=== PATIENT | female | born 1980 | race African-American/Black ===

== ENCOUNTER 2021-09-26 18:39 | Observation (INO) | payer MEDICAID, OTHER ==
[~2021-09-26] VITALS: Ht 170.2 cm; Wt 82.0 kg
[2021-09-26 21:15] LABS: BASOPHILS % 0.2 % (0.0-2.0); EOSINOPHILS % 0.5 % (0.0-5.0); HEMATOCRIT. 37.9 % (36.0-48.0); HEMOGLOBIN. 12.8 g/dL (12.0-16.0); LYMPHOCYTES % 15.8 % (20.0-50.0); MEAN CORPUSCULAR HEMOGLOBIN 32.6 pg (28.0-32.0); MEAN CORPUSCULAR VOLUME 96.2 fL (81.0-99.0); MEAN PLATELET VOLUME 7.7 fl (7.4-10.4); NEUTROPHILS % 75.5 % (40.0-76.0); PLATELET 256 x1000/uL (130-400); RED BLOOD CELL COUNT 3.94 mill/uL (4.2-5.4); RED CELL DISTRIBUTION WIDTH 13.7 % (11.6-14.6)
[2021-09-26 21:26] LABS: CHLORIDE 110 mEq/L (98-107)
[2021-09-26 21:49] LABS: B-HCG QUANTITATIVE 10877 mIU/mL (<3)
[2021-09-26 22:10] VITALS: BP 154/89
[2021-09-26 22:48] LABS: CLARITY URINE CLOUDY (CLEAR); COLOR URINE YELLOW (YELLOW); KETONES URINE NEGATIVE (NEGATIVE); LEUKOCYTE ESTERASE URINE 1+ (NEGATIVE); NITRITE URINE NEGATIVE (NEGATIVE); OCCULT BLOOD URINE NEGATIVE (NEGATIVE); PROTEIN URINE NEGATIVE (NEGATIVE); SPECIFIC GRAVITY URINE 1.021 (1.005-1.030); UROBILINOGEN URINE 0.2 E.U./dL (0.2-1.0)
[2021-09-27] MEDS ORDERED: LABETALOL HCL 200MG TABLET PO SCH (03:30)
[2021-09-27 04:43] LABS: INR 0.9; PARTIAL THROMBOPLASTIN TIME 27.9 sec (23.4-31.0); PROTHROMBIN TIME 9.4 sec (9.6-11.0)
== END 2021-09-27 06:00 | disposition home or self-care (01) ==
LOC: ER 18:58 → 8 EST LDRP 23:35
PROVIDERS: ADMIT Specialist; ATTEND Specialist
DX: O26.893 Other specified pregnancy related conditions, third trimester (principal); R42 Dizziness and giddiness; O16.3 Unspecified maternal hypertension, third trimester; O09.523 Supervision of elderly multigravida, third trimester; Z3A.28 28 weeks gestation of pregnancy
CPT/HCPCS: 36415; 59025; 76805; 76818; 80053; 81003; 83690; 84484; 84550; 84702; 85025; 85384; 85610; 85730; 93005; 99284; G0378; 99281

== ENCOUNTER 2021-11-01 13:00 | Inpatient (IN) | payer MEDICAID, OTHER ==
[2021-11-01] VITALS (83 sets, daily range): BP systolic 43–150; BP diastolic 23–129
[~2021-11-01] VITALS: Ht 170.2 cm; Wt 100.1 kg
[2021-11-01] MEDS ORDERED: LACTATED RINGERS 1,000 ML IV SCH (13:15)
[2021-11-01] MEDS ORDERED: ONDANSETRON HCL 4MG/2ML INJ IV PRN ×2 (13:15→14:45)
[2021-11-01] MEDS ORDERED: PROPOFOL 200MG/20ML VIAL IV ONE (13:42)
[2021-11-01] MEDS ORDERED: SUCCINYLCHOLINE CHLORIDE 200MG/10ML IV ONE (13:42)
[2021-11-01 13:43] LABS: BASOPHILS % 0.1 % (0.0-2.0); EOSINOPHILS % 0.3 % (0.0-5.0); HEMATOCRIT. 29.5 % (36.0-48.0); HEMOGLOBIN. 10.1 g/dL (12.0-16.0); LYMPHOCYTES % 10.8 % (20.0-50.0); MEAN CORPUSCULAR HEMOGLOBIN 33.4 pg (28.0-32.0); MEAN CORPUSCULAR VOLUME 97.2 fL (81.0-99.0); NEUTROPHILS % 78.8 % (40.0-76.0); PLATELET 90 x1000/uL (130-400); RED BLOOD CELL COUNT 3.04 mill/uL (4.2-5.4); RED CELL DISTRIBUTION WIDTH 13.5 % (11.6-14.6)
[2021-11-01] MEDS ORDERED: MAGNESIUM 4 G PREMIX 100 ML IV NR (13:45)
[2021-11-01] MEDS ORDERED: IBUPROFEN 400MG TABLET PO PRN (13:45)
[2021-11-01] MEDS ORDERED: HEMORRHOIDAL SUPP PR PRN (13:45)
[2021-11-01] MEDS: DEXT 5%/LACTATED RINGERS 1,000 ML IV SCH ×2 (13:45→21:51)
[2021-11-01] MEDS ORDERED: IBUPROFEN 800MG TABLET PO PRN (13:45)
[2021-11-01] MEDS ORDERED: RHO(D) IMMUNE GLOBULIN 300 MCG/SYR IM PRN (13:45)
[2021-11-01] MEDS ORDERED: DIPHENHYDRAMINE 25MG CAPSULE PO PRN (13:45)
[2021-11-01] MEDS ORDERED: MAGNESIUM 20 G PREMIX (L & D) 500 ML IV SCH (13:45)
[2021-11-01] MEDS ORDERED: BISACODYL 10MG SUPP PR PRN (13:45)
[2021-11-01] MEDS ORDERED: CEFAZOLIN SODIUM 1000MG/VIAL ONE (13:47)
[2021-11-01] MEDS ORDERED: SODIUM CHLORIDE 0.9% 10ML VIAL ONE (13:47)
[2021-11-01] MEDS ORDERED: OXYTOCIN 10 UNITS/ML 1ML ONE (13:47)
[2021-11-01] MEDS ORDERED: EPHEDRINE SULFATE 50MG/ML VIAL ONE (13:47)
[2021-11-01 13:49] LABS: CHLORIDE 112 mEq/L (98-107)
[2021-11-01 14:02] LABS: INR 1.2; PARTIAL THROMBOPLASTIN TIME 31.9 sec (23.4-31.0); PROTHROMBIN TIME 13.1 sec (9.6-11.0)
[2021-11-01] MEDS ORDERED: ONDANSETRON HCL 4MG/2ML INJ ONE (14:13)
[2021-11-01] MEDS ORDERED: FENTANYL CITRATE/PF 50MCG/ML 2ML VIAL ONE (14:16)
[2021-11-01] MEDS ORDERED: LABETALOL HCL 5MG/ML VIAL 20ML IV ONE (14:17)
[2021-11-01 14:37] LABS: D-DIMER > 35.20 mg/L FEU (<0.50)
[2021-11-01 14:43] LABS: FIBRINOGEN 93 mg/dL (200-400)
[2021-11-01] MEDS: HYDROMORPHONE HCL/PF 2MG/ML CPJ IV PRN ×3 (15:01→23:49)
[2021-11-01 15:23] LABS: CLARITY URINE TURBID (CLEAR); COLOR URINE DARK YELLOW (YELLOW); KETONES URINE TRACE (NEGATIVE); LEUKOCYTE ESTERASE URINE 1+ (NEGATIVE); NITRITE URINE NEGATIVE (NEGATIVE); OCCULT BLOOD URINE 3+ (NEGATIVE); PH URINE 5.5 (4.5-8.0); PROTEIN URINE 4+ (NEGATIVE); SPECIFIC GRAVITY URINE 1.033 (1.005-1.030); UROBILINOGEN URINE 0.2 E.U./dL (0.2-1.0)
[2021-11-01 15:39] LABS: *AMPHETAMINES SCREEN URINE NEGATIVE (NEGATIVE); *BARBITURATES SCREEN URINE NEGATIVE (NEGATIVE); *BENZODIAZEPINES SCREEN URINE NEGATIVE (NEGATIVE); *COCAINE SCREEN URINE NEGATIVE (NEGATIVE); METHADONE URINE SCREEN NEGATIVE (NEGATIVE); OPIATES URINE SCREEN NEGATIVE (NEGATIVE)
[2021-11-01 15:40] LABS: CANNABINOID URINE SCREEN NEGATIVE (NEGATIVE); PHENCYCLIDINE URINE SCREEN NEGATIVE (NEGATIVE)
[2021-11-01] MEDS ORDERED: LABETALOL HCL 5MG/ML VIAL 20ML IV PRN ×2 (16:00)
[2021-11-01] MEDS ORDERED: NALOXONE HCL 0.4MG/ML VIAL IV PRN (16:00)
[2021-11-01] MEDS ORDERED: HYDRALAZINE 20MG/ML VIAL IV PRN ×2 (16:00)
[2021-11-01] MEDS: MAGNESIUM/ALUMINUM HYDROXIDE/SIMETHICONE 30ML UDC PO SCH ×3 (17:00→21:49)
[2021-11-01] MEDS: SIMETHICONE 80MG TABLET CHEW PO SCH ×3 (17:00→21:49)
[2021-11-01] MEDS: DEXT 5%/LR + PITOCIN 20UNITS/L 1,000 ML IV SCH ×2 (17:27→21:52)
[2021-11-01 18:29] LABS: EOSINOPHILS % 0.1 % (0.0-5.0); LYMPHOCYTES % 11.9 % (20.0-50.0); MEAN CORPUSCULAR HEMOGLOBIN 32.6 pg (28.0-32.0); MEAN CORPUSCULAR VOLUME 98.4 fL (81.0-99.0); MEAN PLATELET VOLUME 7.5 fl (7.4-10.4); MONOCYTES % 7.8 % (2.0-8.0); NEUTROPHILS % 80.2 % (40.0-76.0); PLATELET 78 x1000/uL (130-400); RED BLOOD CELL COUNT 1.98 mill/uL (4.2-5.4); RED CELL DISTRIBUTION WIDTH 13.2 % (11.6-14.6)
[2021-11-01 18:31] LABS: HEMATOCRIT. 19.5 % (36.0-48.0); HEMOGLOBIN. 6.5 g/dL (12.0-16.0)
[2021-11-01 18:36] LABS: CHLORIDE 106 mEq/L (98-107)
[2021-11-01 20:15] LABS: INR 1.3; PARTIAL THROMBOPLASTIN TIME 30.2 sec (23.4-31.0); PROTHROMBIN TIME 13.3 sec (9.6-11.0)
[2021-11-01] MEDS ORDERED: FUROSEMIDE 20MG/2ML VIAL IVP NR (20:30)
[2021-11-01 20:35] LABS: D-DIMER > 35.20 mg/L FEU (<0.50); FIBRINOGEN 93 mg/dL (200-400)
[2021-11-01] MEDS: DOCUSATE SODIUM 100MG CAPSULE PO SCH (21:00)
[2021-11-02] VITALS (187 sets, daily range): BP systolic 63–181; BP diastolic 15–129
[2021-11-02 01:14] LABS: EOSINOPHILS % 0.1 % (0.0-5.0); HEMATOCRIT. 22.8 % (36.0-48.0); HEMOGLOBIN. 7.4 g/dL (12.0-16.0); LYMPHOCYTES % 13.1 % (20.0-50.0); MEAN CORPUSCULAR HEMOGLOBIN 31.4 pg (28.0-32.0); MEAN CORPUSCULAR VOLUME 97.2 fL (81.0-99.0); MEAN PLATELET VOLUME 8.4 fl (7.4-10.4); MONOCYTES % 10.2 % (2.0-8.0); NEUTROPHILS % 76.6 % (40.0-76.0); PLATELET 73 x1000/uL (130-400); RED BLOOD CELL COUNT 2.34 mill/uL (4.2-5.4); RED CELL DISTRIBUTION WIDTH 16.5 % (11.6-14.6)
[2021-11-02 03:20] LABS: CLARITY URINE CLOUDY (CLEAR); COLOR URINE DARK YELLOW (YELLOW); KETONES URINE TRACE (NEGATIVE); LEUKOCYTE ESTERASE URINE TRACE (NEGATIVE); NITRITE URINE NEGATIVE (NEGATIVE); OCCULT BLOOD URINE 2+ (NEGATIVE); PROTEIN URINE 2+ (NEGATIVE); SPECIFIC GRAVITY URINE 1.021 (1.005-1.030); UROBILINOGEN URINE 0.2 E.U./dL (0.2-1.0)
[2021-11-02] MEDS: DEXT 5%/LACTATED RINGERS 1,000 ML IV SCH (06:27)
[2021-11-02] MEDS: DEXT 5%/LR + PITOCIN 20UNITS/L 1,000 ML IV SCH (06:33)
[2021-11-02] MEDS: HYDROMORPHONE HCL/PF 2MG/ML CPJ IV PRN (07:50)
[2021-11-02] MEDS: PRENATAL VIT/FE FUMARATE/FA TABLET PO SCH (08:41)
[2021-11-02] MEDS: MAGNESIUM/ALUMINUM HYDROXIDE/SIMETHICONE 30ML UDC PO SCH ×4 (08:42→21:00)
[2021-11-02] MEDS: CEFAZOLIN 1000MG PREMIX 50 ML IV SCH ×2 (08:42→18:41)
[2021-11-02] MEDS: FERROUS SULFATE 325MG TABLET PO SCH ×3 (08:42→18:42)
[2021-11-02] MEDS: SIMETHICONE 80MG TABLET CHEW PO SCH ×4 (08:42→21:00)
[2021-11-02 09:57] LABS: BASOPHILS % 0.1 % (0.0-2.0); LYMPHOCYTES % 13.5 % (20.0-50.0); MEAN CORPUSCULAR HEMOGLOBIN 30.7 pg (28.0-32.0); MEAN CORPUSCULAR VOLUME 93.2 fL (81.0-99.0); MONOCYTES % 9.7 % (2.0-8.0); NEUTROPHILS % 76.7 % (40.0-76.0); PLATELET 90 x1000/uL (130-400); RED BLOOD CELL COUNT 1.69 mill/uL (4.2-5.4); RED CELL DISTRIBUTION WIDTH 16.4 % (11.6-14.6)
[2021-11-02 10:04] LABS: HEMATOCRIT. 15.7 % (36.0-48.0); HEMOGLOBIN. 5.2 g/dL (12.0-16.0)
[2021-11-02 10:09] LABS: CHLORIDE 107 mEq/L (98-107)
[2021-11-02] MEDS: ONDANSETRON HCL 4MG/2ML INJ IV PRN ×2 (10:26→18:41)
[2021-11-02] MEDS ORDERED: DEXTROSE 50% WATER 50ML SYRINGE IV PRN (13:15)
[2021-11-02] MEDS: PANTOPRAZOLE SODIUM 40 MG/VIAL IV SCH (14:20)
[2021-11-02] MEDS: SODIUM CHLORIDE 0.9% 1,000 ML IV SCH (14:20)
[2021-11-02 15:29] LABS: TOTAL IRON BINDING CAPACITY 226 ug/dL (250-450)
[2021-11-02] MEDS: INSULIN LISPRO 100 UNITS/ML SUBCUT SCH ×2 (18:20→21:00)
[2021-11-02] MEDS: BLOOD SUGAR DIAGNOSTIC STRIP TEST SCH ×2 (18:29→21:04)
[2021-11-02 19:54] LABS: BASOPHILS % 0.1 % (0.0-2.0); EOSINOPHILS % 0.1 % (0.0-5.0); HEMATOCRIT. 23.2 % (36.0-48.0); HEMOGLOBIN. 7.9 g/dL (12.0-16.0); LYMPHOCYTES % 7.8 % (20.0-50.0); MEAN CORPUSCULAR VOLUME 88.1 fL (81.0-99.0); MEAN PLATELET VOLUME 8.6 fl (7.4-10.4); MONOCYTES % 9.2 % (2.0-8.0); NEUTROPHILS % 82.8 % (40.0-76.0); PLATELET 82 x1000/uL (130-400); RED BLOOD CELL COUNT 2.64 mill/uL (4.2-5.4); RED CELL DISTRIBUTION WIDTH 15.9 % (11.6-14.6)
[2021-11-02 20:03] LABS: CHLORIDE 107 mEq/L (98-107)
[2021-11-02] MEDS ORDERED: METOCLOPRAMIDE HCL 10MG/2ML VIAL IV SCH (20:15)
[2021-11-02] MEDS: METOCLOPRAMIDE HCL 10MG/2ML VIAL IV PRN (20:17)
[2021-11-02 20:36] LABS: HEPATITIS B SURFACE ANTIGEN NEGATIVE
[2021-11-02] MEDS: DOCUSATE SODIUM 100MG CAPSULE PO SCH (21:00)
[2021-11-03] VITALS (58 sets, daily range): BP systolic 99–177; BP diastolic 43–95
[2021-11-03] MEDS: ONDANSETRON HCL 4MG/2ML INJ IV PRN (00:38)
[2021-11-03] MEDS: OXYCODONE HCL/ACETAMINOPHEN 5/325MG TABLET PO PRN ×3 (00:38→21:14)
[2021-11-03] MEDS: SODIUM CHLORIDE 0.9% 1,000 ML IV SCH ×3 (00:46→14:54)
[2021-11-03 00:54] LABS: BASOPHILS % 0.1 % (0.0-2.0); HEMATOCRIT. 22.5 % (36.0-48.0); HEMOGLOBIN. 7.7 g/dL (12.0-16.0); LYMPHOCYTES % 7.5 % (20.0-50.0); MEAN CORPUSCULAR HEMOGLOBIN 30.2 pg (28.0-32.0); MEAN CORPUSCULAR VOLUME 88.3 fL (81.0-99.0); MEAN PLATELET VOLUME 8.5 fl (7.4-10.4); NEUTROPHILS % 84.4 % (40.0-76.0); PLATELET 90 x1000/uL (130-400); RED BLOOD CELL COUNT 2.55 mill/uL (4.2-5.4); RED CELL DISTRIBUTION WIDTH 16.3 % (11.6-14.6)
[2021-11-03] MEDS: CEFAZOLIN 1000MG PREMIX 50 ML IV SCH ×2 (03:17→10:18)
[2021-11-03 05:51] LABS: MEAN CORPUSCULAR HEMOGLOBIN 30.3 pg (28.0-32.0); MEAN CORPUSCULAR VOLUME 88.5 fL (81.0-99.0); MEAN PLATELET VOLUME 8.6 fl (7.4-10.4); PLATELET 90 x1000/uL (130-400); RED BLOOD CELL COUNT 2.28 mill/uL (4.2-5.4); RED CELL DISTRIBUTION WIDTH 16.5 % (11.6-14.6)
[2021-11-03 05:57] LABS: HEMATOCRIT. 20.2 % (36.0-48.0); HEMOGLOBIN. 6.9 g/dL (12.0-16.0)
[2021-11-03 05:58] LABS: CHLORIDE 109 mEq/L (98-107)
[2021-11-03 06:06] LABS: PHOSPHORUS 5.3 mg/dL (2.5-4.9)
[2021-11-03] MEDS: METOCLOPRAMIDE HCL 10MG/2ML VIAL IV PRN (06:46)
[2021-11-03 07:47] LABS: PLATELET ESTIMATE SLIGHTLY DECREASED
[2021-11-03] MEDS: BLOOD SUGAR DIAGNOSTIC STRIP TEST SCH ×4 (08:27→21:00)
[2021-11-03] MEDS: PRENATAL VIT/FE FUMARATE/FA TABLET PO SCH (09:02)
[2021-11-03] MEDS: MAGNESIUM/ALUMINUM HYDROXIDE/SIMETHICONE 30ML UDC PO SCH ×4 (09:02→21:18)
[2021-11-03] MEDS: PANTOPRAZOLE SODIUM 40 MG/VIAL IV SCH (09:02)
[2021-11-03] MEDS: SIMETHICONE 80MG TABLET CHEW PO SCH ×4 (09:02→21:12)
[2021-11-03] MEDS: FERROUS SULFATE 325MG TABLET PO SCH ×3 (09:02→18:04)
[2021-11-03] MEDS: INSULIN LISPRO 100 UNITS/ML SUBCUT SCH ×4 (09:03→21:12)
[2021-11-03] MEDS: LABETALOL HCL 100MG TABLET PO SCH ×3 (11:23→18:04)
[2021-11-03 12:28] LABS: HEMATOCRIT. 24.8 % (36.0-48.0); HEMOGLOBIN. 8.4 g/dL (12.0-16.0); MEAN CORPUSCULAR HEMOGLOBIN 29.8 pg (28.0-32.0); MEAN CORPUSCULAR VOLUME 87.7 fL (81.0-99.0); MEAN PLATELET VOLUME 8.4 fl (7.4-10.4); PLATELET 97 x1000/uL (130-400); RED BLOOD CELL COUNT 2.83 mill/uL (4.2-5.4); RED CELL DISTRIBUTION WIDTH 15.6 % (11.6-14.6)
[2021-11-03 13:12] LABS: PLATELET ESTIMATE DECREASED
[2021-11-03] MEDS ORDERED: CEFTRIAXONE 2 G PREMIX 50 ML IV SCH (17:00)
[2021-11-03] MEDS: CEFTRIAXONE 2 G in DEXTROSE 5% WATER 50 ML IV SCH (18:04)
[2021-11-03] MEDS ORDERED: METOCLOPRAMIDE HCL 10MG/2ML VIAL IV PRN (18:19)
[2021-11-03] MEDS ORDERED: VANCOMYCIN 500MG PREMIX 100 ML IV SCH (18:30)
[2021-11-03] MEDS: DOCUSATE SODIUM 100MG CAPSULE PO SCH (21:12)
[2021-11-04] VITALS (51 sets, daily range): BP systolic 113–162; BP diastolic 25–110
[2021-11-04] MEDS: SODIUM CHLORIDE 0.9% 1,000 ML IV SCH ×2 (03:00→23:08)
[2021-11-04] MEDS: OXYCODONE HCL/ACETAMINOPHEN 5/325MG TABLET PO PRN ×4 (03:06→23:08)
[2021-11-04 05:46] LABS: HEMOGLOBIN. 7.1 g/dL (12.0-16.0); MEAN CORPUSCULAR HEMOGLOBIN 30.3 pg (28.0-32.0); MEAN CORPUSCULAR VOLUME 89.2 fL (81.0-99.0); MEAN PLATELET VOLUME 7.8 fl (7.4-10.4); PLATELET 89 x1000/uL (130-400); RED BLOOD CELL COUNT 2.34 mill/uL (4.2-5.4); RED CELL DISTRIBUTION WIDTH 15.9 % (11.6-14.6)
[2021-11-04 06:04] LABS: PHOSPHORUS 3.7 mg/dL (2.5-4.9)
[2021-11-04 07:04] LABS: HEMATOCRIT. 20.9 % (36.0-48.0)
[2021-11-04] MEDS: BLOOD SUGAR DIAGNOSTIC STRIP TEST SCH ×4 (07:50→21:47)
[2021-11-04 08:04] LABS: NUCLEATED RED BLOOD CELLS 1 /100 WBC
[2021-11-04 08:05] LABS: PLATELET ESTIMATE DECREASED
[2021-11-04] MEDS: PRENATAL VIT/FE FUMARATE/FA TABLET PO SCH (08:26)
[2021-11-04] MEDS: LABETALOL HCL 100MG TABLET PO SCH ×3 (08:26→17:46)
[2021-11-04] MEDS: PANTOPRAZOLE SODIUM 40 MG/VIAL IV SCH (08:26)
[2021-11-04] MEDS: FERROUS SULFATE 325MG TABLET PO SCH ×3 (08:26→17:47)
[2021-11-04] MEDS: SIMETHICONE 80MG TABLET CHEW PO SCH ×4 (08:26→21:47)
[2021-11-04] MEDS: MAGNESIUM/ALUMINUM HYDROXIDE/SIMETHICONE 30ML UDC PO SCH ×4 (08:27→21:47)
[2021-11-04] MEDS: INSULIN LISPRO 100 UNITS/ML SUBCUT SCH ×4 (08:29→21:00)
[2021-11-04] MEDS ORDERED: VANCOMYCIN 1,000 MG in DEXT 5% WATER 250 ML IV NR (12:00)
[2021-11-04 13:07] LABS: *CREATININE RANDOM URINE 154.1 mg/dL (Not Estab.); MICROALBUMIN RANDOM URINE 1744.7 ug/mL (Not Estab.)
[2021-11-04] MEDS: CEFTRIAXONE 2 G in DEXTROSE 5% WATER 50 ML IV SCH (18:29)
[2021-11-04 20:23] LABS: HEMATOCRIT 23.9 % (36.0-48.0); HEMOGLOBIN 7.8 g/dL (12.0-16.0)
[2021-11-04] MEDS: DOCUSATE SODIUM 100MG CAPSULE PO SCH (21:47)
[2021-11-05] VITALS: BP 139/79
[2021-11-05 04:00] VITALS: BP 144/82
[2021-11-05] MEDS: OXYCODONE HCL/ACETAMINOPHEN 5/325MG TABLET PO PRN ×3 (05:41→21:38)
[2021-11-05 06:34] LABS: BASOPHILS % 0.1 % (0.0-2.0); EOSINOPHILS % 0.3 % (0.0-5.0); HEMATOCRIT. 23.5 % (36.0-48.0); LYMPHOCYTES % 7.3 % (20.0-50.0); MEAN CORPUSCULAR HEMOGLOBIN 30.5 pg (28.0-32.0); MEAN CORPUSCULAR VOLUME 89.4 fL (81.0-99.0); MEAN PLATELET VOLUME 7.6 fl (7.4-10.4); MONOCYTES % 7.1 % (2.0-8.0); NEUTROPHILS % 85.2 % (40.0-76.0); PLATELET 107 x1000/uL (130-400); RED BLOOD CELL COUNT 2.62 mill/uL (4.2-5.4); RED CELL DISTRIBUTION WIDTH 15.5 % (11.6-14.6)
[2021-11-05 07:21] LABS: CHLORIDE 115 mEq/L (98-107)
[2021-11-05 07:28] LABS: PHOSPHORUS 2.7 mg/dL (2.5-4.9)
[2021-11-05] MEDS: BLOOD SUGAR DIAGNOSTIC STRIP TEST SCH ×4 (07:40→21:38)
[2021-11-05] MEDS: INSULIN LISPRO 100 UNITS/ML SUBCUT SCH ×4 (07:50→21:00)
[2021-11-05 08:00] VITALS: BP 152/67
[2021-11-05] MEDS: PANTOPRAZOLE SODIUM 40 MG/VIAL IV SCH (09:35)
[2021-11-05] MEDS: MAGNESIUM/ALUMINUM HYDROXIDE/SIMETHICONE 30ML UDC PO SCH ×4 (09:35→21:38)
[2021-11-05] MEDS: PRENATAL VIT/FE FUMARATE/FA TABLET PO SCH (09:36)
[2021-11-05] MEDS: FERROUS SULFATE 325MG TABLET PO SCH ×3 (09:36→19:05)
[2021-11-05] MEDS: LABETALOL HCL 100MG TABLET PO SCH ×3 (09:36→21:40)
[2021-11-05] MEDS: SIMETHICONE 80MG TABLET CHEW PO SCH ×4 (09:36→21:32)
[2021-11-05 12:00] VITALS: BP 163/63
[2021-11-05] MEDS ORDERED: VANCOMYCIN 1,500 MG in DEXT 5% WATER 250 ML IV NR (13:00)
[2021-11-05 16:00] VITALS: BP 160/74
[2021-11-05] MEDS: CEFTRIAXONE 2 G in DEXTROSE 5% WATER 50 ML IV SCH (19:23)
[2021-11-05 20:30] VITALS: BP_SYST 134; BP_SYST 174; BP_DIAS 71; BP_DIAS 78
[2021-11-05] MEDS: DOCUSATE SODIUM 100MG CAPSULE PO SCH (21:32)
[2021-11-05] MEDS: SODIUM CHLORIDE 0.9% 1,000 ML IV SCH (21:39)
[2021-11-06] VITALS: BP 113/72
[2021-11-06 04:00] VITALS: BP 129/69
[2021-11-06 06:26] LABS: BASOPHILS % 0.1 % (0.0-2.0); EOSINOPHILS % 0.6 % (0.0-5.0); HEMOGLOBIN. 8.6 g/dL (12.0-16.0); MEAN CORPUSCULAR HEMOGLOBIN 31.1 pg (28.0-32.0); MEAN PLATELET VOLUME 7.3 fl (7.4-10.4); NEUTROPHILS % 76.3 % (40.0-76.0); PLATELET 144 x1000/uL (130-400); RED BLOOD CELL COUNT 2.75 mill/uL (4.2-5.4); RED CELL DISTRIBUTION WIDTH 15.6 % (11.6-14.6)
[2021-11-06] MEDS: LABETALOL HCL 100MG TABLET PO SCH ×3 (06:29→21:45)
[2021-11-06 06:38] LABS: CHLORIDE 114 mEq/L (98-107)
[2021-11-06 06:48] LABS: PHOSPHORUS 2.9 mg/dL (2.5-4.9)
[2021-11-06] MEDS: BLOOD SUGAR DIAGNOSTIC STRIP TEST SCH ×4 (07:10→21:40)
[2021-11-06] MEDS: INSULIN LISPRO 100 UNITS/ML SUBCUT SCH ×4 (07:50→21:40)
[2021-11-06 08:00] VITALS: BP 150/81
[2021-11-06] MEDS: PANTOPRAZOLE SODIUM 40 MG/VIAL IV SCH (08:43)
[2021-11-06] MEDS: FERROUS SULFATE 325MG TABLET PO SCH ×3 (08:44→17:32)
[2021-11-06] MEDS: OXYCODONE HCL/ACETAMINOPHEN 5/325MG TABLET PO PRN ×2 (08:44→21:45)
[2021-11-06] MEDS: PRENATAL VIT/FE FUMARATE/FA TABLET PO SCH (08:44)
[2021-11-06] MEDS: SIMETHICONE 80MG TABLET CHEW PO SCH ×4 (08:44→21:44)
[2021-11-06] MEDS: MAGNESIUM/ALUMINUM HYDROXIDE/SIMETHICONE 30ML UDC PO SCH ×5 (08:46→21:58)
[2021-11-06] MEDS: SODIUM CHLORIDE 0.9% 1,000 ML IV SCH (08:47)
[2021-11-06 12:00] VITALS: BP 172/88
[2021-11-06] MEDS ORDERED: VANCOMYCIN 1250MG in DEXTROSE 5% WATER 250ML IV NR (15:00)
[2021-11-06 16:00] VITALS: BP 172/89
[2021-11-06] MEDS: NIFEDIPINE XL 30MG TAB PO SCH (17:31)
[2021-11-06 20:00] VITALS: BP 161/86
[2021-11-06] MEDS: CEFTRIAXONE 2 G in DEXTROSE 5% WATER 50 ML IV SCH (20:10)
[2021-11-06] MEDS: DOCUSATE SODIUM 100MG CAPSULE PO SCH (21:45)
[2021-11-07] VITALS: BP 155/80
[2021-11-07 03:41] VITALS: BP 139/84
[2021-11-07] MEDS: OXYCODONE HCL/ACETAMINOPHEN 5/325MG TABLET PO PRN ×3 (03:46→21:49)
[2021-11-07] MEDS: INSULIN LISPRO 100 UNITS/ML SUBCUT SCH ×4 (06:49→21:00)
[2021-11-07] MEDS: BLOOD SUGAR DIAGNOSTIC STRIP TEST SCH ×4 (06:49→21:48)
[2021-11-07] MEDS: LABETALOL HCL 100MG TABLET PO SCH ×3 (06:53→21:48)
[2021-11-07] MEDS: FERROUS SULFATE 325MG TABLET PO SCH ×3 (06:56→16:58)
[2021-11-07 07:47] LABS: PHOSPHORUS 2.7 mg/dL (2.5-4.9)
[2021-11-07 08:30] VITALS: BP 148/86
[2021-11-07] MEDS: PANTOPRAZOLE SODIUM 40 MG/VIAL IV SCH (09:35)
[2021-11-07] MEDS: PRENATAL VIT/FE FUMARATE/FA TABLET PO SCH (09:35)
[2021-11-07] MEDS: NIFEDIPINE XL 30MG TAB PO SCH (09:36)
[2021-11-07] MEDS: SIMETHICONE 80MG TABLET CHEW PO SCH ×4 (09:43→21:49)
[2021-11-07 10:15] LABS: BASOPHILS % 0.1 % (0.0-2.0); HEMATOCRIT. 32.1 % (36.0-48.0); LYMPHOCYTES % 8.4 % (20.0-50.0); MEAN CORPUSCULAR HEMOGLOBIN 29.9 pg (28.0-32.0); MEAN CORPUSCULAR VOLUME 90.3 fL (81.0-99.0); MEAN PLATELET VOLUME 6.8 fl (7.4-10.4); MONOCYTES % 10.8 % (2.0-8.0); NEUTROPHILS % 79.7 % (40.0-76.0); PLATELET 214 x1000/uL (130-400); RED BLOOD CELL COUNT 3.56 mill/uL (4.2-5.4); RED CELL DISTRIBUTION WIDTH 15.8 % (11.6-14.6)
[2021-11-07 10:19] LABS: HEMOGLOBIN. 10.7 g/dL (12.0-16.0)
[2021-11-07 12:26] VITALS: BP 109/35
[2021-11-07] MEDS: MAGNESIUM/ALUMINUM HYDROXIDE/SIMETHICONE 30ML UDC PO SCH ×3 (12:44→21:49)
[2021-11-07 16:03] VITALS: BP 157/84
[2021-11-07 20:00] VITALS: BP 97/62
[2021-11-07] MEDS: DOCUSATE SODIUM 100MG CAPSULE PO SCH (21:49)
[2021-11-07] MEDS ORDERED: METOCLOPRAMIDE HCL 10MG/2ML VIAL IV PRN (22:12)
[2021-11-08] VITALS: BP 116/71
[2021-11-08] MEDS: OXYCODONE HCL/ACETAMINOPHEN 5/325MG TABLET PO PRN ×2 (03:53→21:29)
[2021-11-08 04:00] VITALS: BP 162/97
[2021-11-08] MEDS: LABETALOL HCL 100MG TABLET PO SCH ×3 (06:23→17:40)
[2021-11-08] MEDS: BLOOD SUGAR DIAGNOSTIC STRIP TEST SCH ×4 (06:23→21:00)
[2021-11-08 07:20] LABS: BASOPHILS % 0.3 % (0.0-2.0); EOSINOPHILS % 1.2 % (0.0-5.0); HEMATOCRIT. 33.6 % (36.0-48.0); HEMOGLOBIN. 11.4 g/dL (12.0-16.0); LYMPHOCYTES % 13.9 % (20.0-50.0); MEAN CORPUSCULAR HEMOGLOBIN 30.8 pg (28.0-32.0); MEAN CORPUSCULAR VOLUME 90.7 fL (81.0-99.0); MEAN PLATELET VOLUME 6.8 fl (7.4-10.4); MONOCYTES % 10.6 % (2.0-8.0); PLATELET 249 x1000/uL (130-400); RED BLOOD CELL COUNT 3.71 mill/uL (4.2-5.4); RED CELL DISTRIBUTION WIDTH 15.8 % (11.6-14.6)
[2021-11-08 07:34] LABS: CHLORIDE 110 mEq/L (98-107)
[2021-11-08 07:49] LABS: PHOSPHORUS 3.9 mg/dL (2.5-4.9)
[2021-11-08] MEDS: INSULIN LISPRO 100 UNITS/ML SUBCUT SCH ×4 (07:50→21:00)
[2021-11-08 07:54] LABS: HAPTOGLOBIN <31.0 mg/dL (30-200)
[2021-11-08 08:17] VITALS: BP 167/103
[2021-11-08] MEDS: FERROUS SULFATE 325MG TABLET PO SCH ×3 (08:47→17:40)
[2021-11-08] MEDS: MAGNESIUM/ALUMINUM HYDROXIDE/SIMETHICONE 30ML UDC PO SCH ×4 (08:47→21:30)
[2021-11-08] MEDS: PANTOPRAZOLE SODIUM 40 MG/VIAL IV SCH (08:47)
[2021-11-08] MEDS: PRENATAL VIT/FE FUMARATE/FA TABLET PO SCH (08:47)
[2021-11-08] MEDS: SIMETHICONE 80MG TABLET CHEW PO SCH ×4 (08:47→21:29)
[2021-11-08] MEDS: NIFEDIPINE XL 30MG TAB PO SCH ×3 (08:56→21:30)
[2021-11-08 12:15] VITALS: BP 139/71
[2021-11-08 16:20] VITALS: BP 156/111
[2021-11-08 20:00] VITALS: BP 146/93
[2021-11-08] MEDS: DOCUSATE SODIUM 100MG CAPSULE PO SCH (21:30)
[2021-11-09] VITALS: BP 144/79
[2021-11-09] MEDS: LABETALOL HCL 100MG TABLET PO SCH ×3 (01:31→13:25)
[2021-11-09 04:00] VITALS: BP 145/89
[2021-11-09 07:07] LABS: CHLORIDE 110 mEq/L (98-107)
[2021-11-09 07:23] LABS: PHOSPHORUS 3.6 mg/dL (2.5-4.9)
[2021-11-09] MEDS: BLOOD SUGAR DIAGNOSTIC STRIP TEST SCH ×2 (07:32→12:20)
[2021-11-09] MEDS: INSULIN LISPRO 100 UNITS/ML SUBCUT SCH ×2 (07:50→12:50)
[2021-11-09 08:00] VITALS: BP 133/77
[2021-11-09] MEDS ORDERED: NIFEDIPINE XL 30MG TAB PO SCH (09:00)
[2021-11-09] MEDS ORDERED: LABE100T5 PO (10:38)
[2021-11-09] MEDS ORDERED: NIFE-33 PO (10:38)
[2021-11-09] MEDS ORDERED: IBUP-2030 MT (10:39)
[2021-11-09 10:47] LABS: BASOPHILS % 0.2 % (0.0-2.0); EOSINOPHILS % 1.4 % (0.0-5.0); HEMATOCRIT. 33.7 % (36.0-48.0); HEMOGLOBIN. 11.5 g/dL (12.0-16.0); LYMPHOCYTES % 12.4 % (20.0-50.0); MEAN CORPUSCULAR HEMOGLOBIN 31.2 pg (28.0-32.0); PLATELET 306 x1000/uL (130-400); RED BLOOD CELL COUNT 3.68 mill/uL (4.2-5.4); RED CELL DISTRIBUTION WIDTH 15.9 % (11.6-14.6)
[2021-11-09 10:48] LABS: MEAN CORPUSCULAR VOLUME 91.5 fL (81.0-99.0)
[2021-11-09] MEDS: MAGNESIUM/ALUMINUM HYDROXIDE/SIMETHICONE 30ML UDC PO SCH ×2 (11:36→12:48)
[2021-11-09] MEDS: PRENATAL VIT/FE FUMARATE/FA TABLET PO SCH (11:36)
[2021-11-09] MEDS: FERROUS SULFATE 325MG TABLET PO SCH ×2 (11:37→13:25)
[2021-11-09] MEDS: SIMETHICONE 80MG TABLET CHEW PO SCH ×2 (11:37→13:25)
[2021-11-09] MEDS: NIFEDIPINE XL 30MG TAB PO SCH (11:37)
[2021-11-09] MEDS: PANTOPRAZOLE SODIUM 40 MG/VIAL IV SCH (11:38)
[2021-11-09 12:30] VITALS: BP 151/103
[2021-11-09 14:27] VITALS: BP 148/94
== END 2021-11-09 17:20 | disposition home or self-care (01) | DRG 540 ==
LOC: 8 EST A/PP 13:00 → CVICU 17:40 → 6WST 11-04 16:36
PROVIDERS: ADMIT Obstetrics & Gynecology; ATTEND Obstetrics & Gynecology
PROC: 10D00Z1 Extraction of Products of Conception, Low, Open Approach (ICD-10-PCS; principal; 2021-11-01)
PROC: 30233K1 Transfusion of Nonautologous Frozen Plasma into Peripheral Vein, Percutaneous Approach (ICD-10-PCS; 2021-11-01)
PROC: 30233N1 Transfusion of Nonautologous Red Blood Cells into Peripheral Vein, Percutaneous Approach (ICD-10-PCS; 2021-11-01)
PROC: 30233R1 Transfusion of Nonautologous Platelets into Peripheral Vein, Percutaneous Approach (ICD-10-PCS; 2021-11-01)
DX: O14.24 HELLP syndrome, complicating childbirth (principal); A41.9 Sepsis, unspecified organism; O75.3 Other infection during labor; O45.93 Premature separation of placenta, unspecified, third trimester; N17.9 Acute kidney failure, unspecified; O24.12 Pre-existing type 2 diabetes mellitus, in childbirth; O13.4 Gestational [pregnancy-induced] hypertension without significant proteinuria, complicating childbirth; O99.892 Other specified diseases and conditions complicating childbirth; O76 Abnormality in fetal heart rate and rhythm complicating labor and delivery; F16.10 Hallucinogen abuse, uncomplicated; Z20.822 Contact with and (suspected) exposure to COVID-19; O99.02 Anemia complicating childbirth; D62 Acute posthemorrhagic anemia; O99.324 Drug use complicating childbirth; Z3A.33 33 weeks gestation of pregnancy; Z37.0 Single live birth
CPT/HCPCS: 36415; 71045; 76700; 76805; 80048; 80053; 80076; 80202; 80305; 81003; 82043; 82550; 82570; 82962; 83010; 83036; 83540; 83550; 83735; 83935; 84100; 84145; 84300; 84550; 85014; 85018; 85025; 85379; 85384; 86705; 86709; 86803; 86850; 86900; 86920; 86927; 87340; 87426; 88307; 93970; 97162; 97165; 99281; C9113; J0330; J0690; J0696; J1170; J1815; J2405; J2590; J2704; J2765; J3010; J3370; J3475; J3490; J7030; J7040; J7060; J7120; J7121; P9016; P9017; Q0163; P9036